=== PATIENT | female | born 1995 | race Two or more races ===

== ENCOUNTER 2018-06-24 09:55 | Emergency (ER) | payer BC ==
[2018-06-24 10:12] VITALS: BMI 23.0
[2018-06-24] MEDS ORDERED: SODIUM CHLORIDE 1,000 ML IV STA (10:28)
--- NOTE | 2018-06-24 10:41 | PDOC ---
History of Present Illness - General Chief Complaint: Weakness Stated Complaint: WEAKNESS,DIZZINESS,FEVER Time Seen by Provider: 06/24/18 10:08 History Source: Patient Exam Limitations: No Limitations - History of Present Illness Initial Comments: 22 y/o F with no sig pmh presents with generalized weakness, lightheadedness, subjective fever, mild sore throat, mild dry cough x 2 weeks, with symptoms getting worse the past week. States also has loss of appetite. Has not yet seen her PCP regarding her symptoms. Denies recent travel, sick contacts. Received her flu vaccine this year. Denies body aches, rhinorrhea, congestion, rash, sob , cp, abd pain, n/v/d, dysuria, hematuria, urinary urgency/frequency, headache, visual/gait changes. 06/24/18 10:36 Past History - Past Medical History Allergies/Adverse Reactions: Allergies Allergy/AdvReac Type Severity Reaction Status Date / Time No Known Allergies Allergy Verified 06/24/18 10:06 Home Medications: Ambulatory Orders NK [No Known Home Medication] 06/24/18 COPD: No - Suicide/Smoking/Psychosocial Hx Smoking History: Never smoked Review of Systems - Review of Systems Comments:: See HPI 06/24/18 10:40 *Physical Exam - Vital Signs Last Vital Signs Temp Pulse Resp BP Pulse Ox 98.3 F 102 H 16 122/71 100 06/24/18 10:08 06/24/18 10:08 06/24/18 10:08 06/24/18 10:08 06/24/18 10:08 - Physical Exam General Appearance: No: Apparent Distress HEENT: positive: JHONATHAN, Normal Voice. negative: Muffled/Hoarse voice, Pharyngeal Erythema, Tonsillar Exudate, Tonsillar Erythema, Nasal Congestion, Rhinorrhea, Sinus Tenderness Neck: positive: Supple. negative: Lymphadenopathy (R), Lymphadenopathy (L) Respiratory/Chest: positive: Lungs Clear, Normal Breath Sounds. negative: Respiratory Distress Cardiovascular: positive: Regular Rhythm, Regular Rate, S1, S2. negative: Murmur Gastrointestinal/Abdominal: positive: Normal Bowel Sounds, Soft. negative: Tender, Distended, Guarding, Rebound Musculoskeletal: negative: CVA Tenderness Integumentary: positive: Normal Color Neurologic: positive: Fully Oriented, Alert, Normal Mood/Affect ED Treatment Course - LABORATORY CBC & Chemistry Diagram: 06/24/18 10:44 06/24/18 10:40 Medical Decision Making - Medical Decision Making 22 y/o F healthy with no sig pmh presents with generalized weakness, lightheadedness and URI sxs x 2 weeks. PE unremarkable. Consider viral illness vs anemia vs infection vs electrolyte imbalance vs possible thyroid issue. No concern for strep throat/mono given oropharynx clear and no lymphadenopathy noted. Plan: CBC, CMP, UA, UCG, TSH, Influenza swab, CXR, IVF 06/24/18 10:41 Abnormal Lab Results 06/24/18 06/24/18 10:44 11:38 WBC 2.6 L MCV 73.6 L MCH 25.0 L Absolute Neuts (auto) 0.9 L Neutrophils % 33.3 L Lymphocytes % 47.1 H Monocytes % 19.3 H Nucleated RBC % 1 H Ur Specific [place] 1.005 L Labs notable for WBC of 2.6, ANC of 0.9; Hgb, Hct, platelet counts are normal CMP unremarkable, TSH normal CXR and UA negative Flu negative Will refer to hematology given low ANC Patient also advised to f/u with her PCP in 1-2 days for further follow-up; patient states she will be able to do so Stable for d/c 06/24/18 12:26 *DC/Admit/Observation/Transfer Diagnosis at time of Disposition: Weakness generalized, Leukopenia - Discharge Dispostion Disposition: HOME Condition at time of disposition: Good Decision to Admit order: No - Referrals Referrals: Victor M Esparza MD [Staff Physician] - Call tomorrow Paola Mcgregor MD [Primary Care Provider] - 2 Days - Patient Instructions Additional Instructions: Thank you for choosing [facility]. It was a pleasure taking care of you. You were seen here for generalized weakness, dizziness, sore throat and cough. Your blood work showed concern for low white blood cell count with low neutrophils. For this you were referred to the manager test. Please be sure to follow-up with your PCP as well. The rest of your labs were fine. Your chest xray and urine were good as well. Return to the Emergency Department if your symptoms worsen or persist, you have fever, shortness of breath, chest pain, severe abdominal pain, vomiting, weakness of extremities (arms and/or legs), changes in vision or walking or other concerning symptoms. - Post Discharge Activity
[2018-06-24 10:56] LABS: BASO % 0.1 % (0-2.0); EOS % 0.2 % (0-4.5); HEMATOCRIT 36.6 % (32.4-45.2); HEMOGLOBIN 12.4 GM/dL (10.7-15.3); LYMPH % 47.1 % (8-40); MCHC 33.9 g/dl (32.0-36.0); MEAN CELL VOLUME 73.6 fl (80-96); MEAN PLT VOLUME 8.2 fl (7.5-11.1); MONO % 19.3 % (3.8-10.2); NEUT % 33.3 % (42.8-82.8); PLATELET COUNT 237 K/MM3 (134-434); RBC 4.97 M/mm3 (3.60-5.2); WHITE BLOOD COUNT 2.6 K/mm3 (4.0-10.0)
[2018-06-24 11:39] LABS: ALK PHOS 60 U/L (45-117); ANION GAP 9 MMOL/L (8-16); BILIRUBIN,TOTAL 0.6 mg/dL (0.2-1); BLOOD UREA NITROGEN 10 mg/dL (7-18); CALCIUM 8.5 mg/dL (8.5-10.1); CHLORIDE 101 mmol/L (98-107); CO2 28 mmol/L (21-32); CREATININE 0.7 mg/dL (0.55-1.3); GLUCOSE,RANDOM 85 mg/dL (74-106); POTASSIUM 3.6 mmol/L (3.5-5.1); SGOT/AST 32 U/L (15-37); SGPT/ALT 33 U/L (13-61); SODIUM 138 mmol/L (136-145); TOT PROT 8.1 g/dl (6.4-8.2)
[2018-06-24 11:57] LABS: URINE APPEARANCE CLEAR; URINE BILIRUBIN NEGATIVE (<2.0 mg/dL); URINE COLOR STRAW; URINE GLUCOSE (UA) NEGATIVE (NEGATIVE); URINE KETONE NEGATIVE (NEGATIVE); URINE LEUK ESTERASE NEGATIVE (NEGATIVE); URINE NITRITE NEGATIVE (NEGATIVE); URINE PROTEIN NEGATIVE (NEGATIVE); URINE UROBILINOGEN NEGATIVE mg/dL (0.2-1.0)
[2018-06-24 11:58] LABS: HCG,QUALITATIVE URINE Negative
[2018-06-24 12:27] VITALS: BP 109/72; PULSE 84; TEMP 98.9
== END 2018-06-24 13:14 | disposition home or self-care (01) ==
LOC: JER 09:55
DX: D72.819 Decreased white blood cell count, unspecified (principal); R53.1 Weakness
CPT/HCPCS: 36415; 71046-TC-FY; 80053; 81003; 84443; 84703; 85025; 87804; 99283-25; J7030

== ENCOUNTER 2018-06-27 14:43 | Day surgery (SDC) | payer BC ==
[2018-06-27] MEDS ORDERED: CYANOCOBALAMIN (VITAMIN B-12) 1000 MCG/1 ML VIAL IM ONE (16:15)
[2018-06-27] MEDS ORDERED: IRON SUCROSE INJECTION 200 MG in SODIUM CHLORIDE 100 ML IVPB ONE (16:15)
[2018-06-27 17:04] LABS: ALBUMIN 3.9 g/dl (3.4-5.0); ALBUMIN 4.1 g/dl (3.4-5.0); ALK PHOS 63 U/L (45-117); ANION GAP 7 MMOL/L (8-16); BILIRUBIN,DIRECT 0.2 mg/dL (0.0-0.2); BILIRUBIN,TOTAL 0.6 mg/dL (0.2-1); BLOOD UREA NITROGEN 8 mg/dL (7-18); CALCIUM 8.6 mg/dL (8.5-10.1); CHLORIDE 101 mmol/L (98-107); CO2 29 mmol/L (21-32); CREATININE 0.6 mg/dL (0.55-1.3); GLUCOSE,RANDOM 89 mg/dL (74-106); POTASSIUM 3.8 mmol/L (3.5-5.1); SGOT/AST 33 U/L (15-37); SGPT/ALT 34 U/L (13-61); SODIUM 137 mmol/L (136-145); TOT PROT 8.2 g/dl (6.4-8.2)
[2018-06-27] MEDS ORDERED: SODIUM CHLORIDE 1,000 ML IV STA (17:07)
[2018-06-27 17:08] LABS: BASO % 0.3 % (0-2.0); EOS % 0.2 % (0-4.5); HEMATOCRIT 35.7 % (32.4-45.2); HEMOGLOBIN 12.2 GM/dL (10.7-15.3); LYMPH % 41.3 % (8-40); MCH 25.1 pg (25.7-33.7); MCHC 34.1 g/dl (32.0-36.0); MEAN CELL VOLUME 73.7 fl (80-96); MEAN PLT VOLUME 8.4 fl (7.5-11.1); MONO % 19.2 % (3.8-10.2); PLATELET COUNT 261 K/MM3 (134-434); RBC 4.85 M/mm3 (3.60-5.2); RDW 14.8 % (11.6-15.6); WHITE BLOOD COUNT 2.6 K/mm3 (4.0-10.0)
[2018-06-27 18:32] LABS: LDH 332 U/L (84-246)
[2018-06-27 22:11] VITALS: BP 106/64; PULSE 89; TEMP 98.9
--- NOTE | 2018-06-28 17:50 | PATH ---
Surgical Pathology Report Patient Name: SLY MARTINEZ Med. Rec. #: [id number] /Age/Gender: 1995 (Age: 22) / F Account: <[id number]> Location: LABORATORY Taken: 06/27/2018 Received: 06/27/2018 Reported: 06/28/2018 Physicians: Marina Mckoy M.D. Specimen(s) Received 2 GREEN TOP TUBES Clinical History Neutropenia Final Diagnosis COMPREHENSIVE FLOW PANEL performed and interpreted at [facility], [place], [place] ([id number]) shows the following: INTERPRETATION: There is no evidence of B or T-cell proliferative disorders or increased blasts. The monocytic cells are 11% of total events. See [facility] report ([id number]) for additional details. Electronically Signed Ebony Jackson M.D. Gross Description Received are 2 green top tubes of blood which are sent to [facility]. DL/06/27/2018 saudi/06/27/2018
[2018-06-29 06:07] LABS: SERUM IRON SATURATION 8 % (15-55); TOTAL IRON BINDING CAPACITY 286 ug/dL (250-450); UIBC 264 ug/dL (131-425)
[2018-07-02 15:22] LABS: TOTAL PROTEIN, URINE 25.2 mg/dL (Not Estab.)
[2018-07-04 15:28] LABS: METHYLMALONIC ACID- 173 nmol/L (0-378)
== END 2018-06-27 22:16 | disposition home or self-care (01) ==
LOC: JONCNONCHE 14:43 → JLAB 14:43 → EDSTATUS 16:15 → J7W 16:16 → JONCNONCHE 22:16
PROVIDERS: ATTEND Internal Medicine Hematology & Oncology
PROC: 3E033GC Introduction of Other Therapeutic Substance into Peripheral Vein, Percutaneous Approach (ICD-10-PCS; principal; 2018-06-27)
DX: D70.9 Neutropenia, unspecified (principal)
CPT/HCPCS: 36415; 80053; 80076; 82306; 82607; 82728; 82784; 82787; 83540; 83550; 83615; 83921; 84155; 84156; 84157; 84165; 85025; 85651; 86038; 86140; 86431; 96365; 96372; J1756

== ENCOUNTER 2018-06-29 14:10 | Day surgery (SDC) | payer BC ==
[2018-06-29] MEDS ORDERED: IRON SUCROSE INJECTION 200 MG in SODIUM CHLORIDE 100 ML IVPB ONE (14:15)
[2018-06-29 15:45] VITALS: TEMP 96.1
[2018-06-29 16:20] VITALS: BP 100/63; PULSE 88
== END 2018-06-29 16:27 | disposition home or self-care (01) ==
LOC: JONCNONCHE 14:10 → J7W 14:11 → JONCNONCHE 16:27
PROVIDERS: ATTEND Internal Medicine Hematology & Oncology
PROC: 3E033GC Introduction of Other Therapeutic Substance into Peripheral Vein, Percutaneous Approach (ICD-10-PCS; principal; 2018-06-29)
DX: D70.9 Neutropenia, unspecified (principal)
CPT/HCPCS: 96365; J1756

== ENCOUNTER 2018-07-03 07:29 | Day surgery (SDC) | payer BC ==
[2018-07-03 09:52] VITALS: BP 104/63; PULSE 95; TEMP 98.3
[2018-07-03] MEDS ORDERED: IRON SUCROSE INJECTION 200 MG in SODIUM CHLORIDE 100 ML IVPB ONE (10:00)
== END 2018-07-03 10:50 | disposition home or self-care (01) ==
LOC: JONCNONCHE 07:29 → J7W 09:27 → JONCNONCHE 10:50
PROVIDERS: ATTEND Internal Medicine Hematology & Oncology
PROC: 3E033GC Introduction of Other Therapeutic Substance into Peripheral Vein, Percutaneous Approach (ICD-10-PCS; principal; 2018-07-03)
DX: D70.9 Neutropenia, unspecified (principal)
CPT/HCPCS: 96365; J1756

== ENCOUNTER 2018-07-05 07:31 | Day surgery (SDC) | payer BC ==
[2018-07-05] MEDS ORDERED: IRON SUCROSE INJECTION 200 MG in SODIUM CHLORIDE 100 ML IVPB ONE (10:00)
[2018-07-05 18:25] VITALS: BP 97/61; PULSE 88; TEMP 98.5
== END 2018-07-05 15:35 | disposition home or self-care (01) ==
LOC: JONCNONCHE 07:31 → J7W 14:15 → JONCNONCHE 15:35
PROVIDERS: ATTEND Internal Medicine Hematology & Oncology
PROC: 3E033GC Introduction of Other Therapeutic Substance into Peripheral Vein, Percutaneous Approach (ICD-10-PCS; principal; 2018-07-05)
DX: D70.9 Neutropenia, unspecified (principal)
CPT/HCPCS: 96365; J1756

== ENCOUNTER 2018-07-12 06:14 | Day surgery (SDC) | payer BC ==
[2018-07-12] MEDS ORDERED: IRON SUCROSE INJECTION 200 MG in SODIUM CHLORIDE 100 ML IVPB ONE (10:00)
[2018-07-12 18:16] VITALS: BP 101/68; PULSE 90; TEMP 98.1
== END 2018-07-12 16:00 | disposition home or self-care (01) ==
LOC: JONCNONCHE 06:14 → J7W 14:41 → JONCNONCHE 16:00
PROVIDERS: ATTEND Internal Medicine Hematology & Oncology
PROC: 3E033GC Introduction of Other Therapeutic Substance into Peripheral Vein, Percutaneous Approach (ICD-10-PCS; principal; 2018-07-12)
DX: D70.9 Neutropenia, unspecified (principal); D51.9 Vitamin B12 deficiency anemia, unspecified
CPT/HCPCS: 96365; J1756

== ENCOUNTER 2024-12-02 05:16 | Day surgery (SDC) | payer BC ==
[2024-11-28 17:36] VITALS: BMI 27.1
[2024-12-02] MEDS ORDERED: LIDOCAINE HCL/PF 2% SDV 5ML VIAL ONE (09:44)
[2024-12-02] MEDS ORDERED: MIDAZOLAM HCL 2 MG/2 ML SINGLE DOSE VIAL ONE (09:44)
[2024-12-02] MEDS ORDERED: PROPOFOL 40 ML ONE (09:44)
[2024-12-02] MEDS ORDERED: SUCCINYLCHOLINE CHLORIDE 200 MG/10 ML SYRINGE ONE (09:46)
[2024-12-02] MEDS ORDERED: ROCURONIUM BROMIDE 50 MG/5 ML SYRINGE ONE (09:48)
[2024-12-02] MEDS ORDERED: DEXAMETHASONE SOD PHOSPHATE 4 MG/1 ML VIAL ONE (10:13)
[2024-12-02] MEDS ORDERED: ONDANSETRON 4 MG/2 ML VIAL ONE ×2 (10:13→11:37)
[2024-12-02] MEDS ORDERED: KETOROLAC TROMETHAMINE 30 MG/1 ML VIAL ONE (10:13)
[2024-12-02] MEDS ORDERED: ceFAZolin SODIUM 1 GM VIAL ONE (10:13)
[2024-12-02] MEDS: ceFAZolin 2 GRAM PREMIX BAG IVPB ONE ×2 (10:15)
[2024-12-02] MEDS ORDERED: SUGAMMADEX SODIUM 200 MG/2 ML VIAL ONE (10:21)
[2024-12-02] MEDS ORDERED: oxyCODONE HCL 5 MG TABLET PO PRN (11:06)
[2024-12-02] MEDS ORDERED: LACTATED RINGERS SOLUTION 1,000 ML IV SCH (11:15)
[2024-12-02] MEDS: ACETAMINOPHEN 1000 MG/100 ML BAG IVPB ONE (11:33)
[2024-12-02] MEDS: ONDANSETRON 4 MG/2 ML VIAL IVPUSH PRN (11:38)
[2024-12-02 13:08] VITALS: RESP 18
[2024-12-02 13:45] VITALS: BP 104/68; PULSE 80; TEMP 97.4
== END 2024-12-02 14:55 | disposition home or self-care (01) ==
LOC: JASU-SURG 05:16
PROVIDERS: ATTEND Surgery
PROC: 0JB90ZZ Excision of Buttock Subcutaneous Tissue and Fascia, Open Approach (ICD-10-PCS; principal; 2024-12-02 10:00)
DX: M79.81 Nontraumatic hematoma of soft tissue (principal); L02.31 Cutaneous abscess of buttock
CPT/HCPCS: 81025; 86850; 86900; 86901; 88304-TC; 94760; J0131